=== PATIENT | male | born 1980 ===

== ENCOUNTER 2025-02-13 06:44 | Day surgery (SDC) | payer BC ==
[~2025-02-13 06:44] MED LIST: Sodium Chloride 0.9% 10 ML Syringe FLUSH PRN; Sodium Chloride 0.9% 10 ML Syringe FLUSH SCH
[2025-02-13] MEDS: Lactated Ringers 1,000 ML IV SCH (07:00)
[2025-02-13] MEDS ORDERED: propofoL 500 MG/50 ML 50 ML ONE (07:20)
== END 2025-02-13 08:45 | disposition home or self-care (01) ==
LOC: JD.SDS 06:44
PROVIDERS: ATTEND Surgery
DX: Z12.11 Encounter for screening for malignant neoplasm of colon (principal); D12.9 Benign neoplasm of anus and anal canal; E11.9 Type 2 diabetes mellitus without complications; Z91.09 Other allergy status, other than to drugs and biological substances; Z91.011 Allergy to milk products; Z79.899 Other long term (current) drug therapy; Z79.84 Long term (current) use of oral hypoglycemic drugs; Z87.891 Personal history of nicotine dependence
CPT/HCPCS: 45380; J2704; J7120; 00813